=== PATIENT | male | born 1940 | race Caucasian/White ===

== ENCOUNTER 2017-06-18 15:13 | Emergency (ER) | payer OTHER ==
[~2017-06-18] VITALS: Ht 170.2 cm; Wt 76.5 kg
[2017-06-18 15:18] VITALS: Ht 170.2 cm; Wt 76.5 kg
--- NOTE | 2017-06-18 16:09 | DIAGNOSTIC IMAGING REPORT ---
CHEST ONE VIEW PORTABLE HISTORY: 76 years-old Male EVALUATE ALTERED MENTAL STATUS/WEAKNESS acute altered mental status with weakness COMPARISON: None available TECHNIQUE: Portable upright AP view of the chest FINDINGS: Cardiac silhouette is moderately enlarged. There is atherosclerosis of the aorta. Lungs are hypoinflated with bronchovascular crowding. There is mild right hemidiaphragmatic elevation with subsegmental linear bibasilar opacities. No pneumothorax or pleural effusion. No lobar airspace consolidation identified. The bones are grossly intact. IMPRESSION: 1. Cardiomegaly with hypoinflation and bronchovascular crowding. 2. Linear subsegmental bibasilar opacities suggest atelectasis. The above report was generated using voice recognition software. It may contain grammatical, syntax or spelling errors. Electronically signed by: Erasmo Centeno M.D. 06/18/2017 4:07 PM Dictated Date/Time: 06/18/2017 4:06 PM
[2017-06-18 16:31] LABS: HEMATOCRIT 26.1 % (42-52); MEAN CELL VOLUME 89.1 fL (80-100); MEAN CORPUSCULAR HGB CONC 33.7 g/dl (32-36); MEAN PLATELET VOLUME 11.2 fL (7.4-10.4); PLATELET COUNT 146 K/uL (130-400); RED BLOOD COUNT 2.93 M/uL (4.7-6.1); WHITE BLOOD COUNT 4.89 K/uL (4.8-10.8)
[2017-06-18] MEDS ORDERED: MAGN400T6 PO (16:48)
[2017-06-18] MEDS ORDERED: DICL50TA3 PO (16:48)
[2017-06-18] MEDS ORDERED: METO50TA16 PO (16:48)
[2017-06-18] MEDS ORDERED: LISI-725 PO (16:48)
[2017-06-18] MEDS ORDERED: BISA10SU3 PR (16:48)
[2017-06-18] MEDS ORDERED: METF-383 PO (16:48)
[2017-06-18] MEDS ORDERED: LISI40TA PO (16:48)
[2017-06-18] MEDS ORDERED: TRAM-10 PO (16:48)
[2017-06-18] MEDS ORDERED: DILT-203 PO (16:48)
[2017-06-18] MEDS ORDERED: [UNRECOGNIZED DRUG - CODE] PO (16:48)
[2017-06-18] MEDS ORDERED: ALPR-411 PO (16:48)
[2017-06-18] MEDS ORDERED: ASPI325T45 PO (16:48)
[2017-06-18 17:05] LABS: ALT/SGPT 33 U/L (12-78); AST/SGOT 29 U/L (15-37); BLOOD UREA NITROGEN 32 mg/dl (7-18); BUN/CREATININE RATIO 23.1 (10-20); CALCIUM 9.8 mg/dl (8.5-10.1); CARBON DIOXIDE 25 mmol/L (21-32); CHLORIDE 94 mmol/L (98-107); GLUCOSE 333 mg/dl (70-99); MAGNESIUM 2.1 mg/dl (1.8-2.4); POTASSIUM 4.7 mmol/L (3.5-5.1); SODIUM 128 mmol/L (136-145)
[2017-06-18 17:14] LABS: ALKALINE PHOSPHATASE 87 U/L (45-117); BETA-HYDROXYBUTYRATE 1.77 mg/dL (0.2-2.81)
[2017-06-18] MEDS ORDERED: MoRPHine SULFATE 4 MG/ML 1 ML CARP\\VIAL IV STA (17:25)
[2017-06-18 17:34] LABS: URIC ACID 5.6 mg/dl (2.6-7.2)
[2017-06-18] MEDS ORDERED: BOOST GLUCOSE CONTROL PO PRN (18:15)
--- NOTE | 2017-06-18 18:57 | EMERGENCY ROOM VISIT NOTE ---
History Report prepared by Cristina: Beau Junior Under the Supervision of: Dr. Ronal Worrell D.O. First contact with patient: 15:38 Chief Complaint: PAIN (GENERALIZED) Stated Complaint: CHEST PAIN, SOB History of Present Illness The patient is a 76 year old male who presents to the Emergency Room with complaints of worsening weakness that started over the past 3 weeks. Per the patient's daughter, the patient has gone downhill very fast the past few weeks, with severe pain, weakness, and constipation. The patient was noted to be very active before going downhill. He now cannot even get out of his house much. The patient's symptoms worsened over the past week, and was brought by ambulance to the [facility] ED a few days ago, and the patient's daughter was called back today and was told that the patient has acute myelogenous leukemia via flow cytometry. The patient was told to come here to be seen by oncology. The patient has had severe shoulder and back pain for "years", and was told that it was probably musculoskeletal, but the pain has worsened over the past few weeks. He takes Tramadol for the pain. The patient notes that he has had a bit of a cough recently. He was also seen at the [facility] around 10 days ago and had a CT scan done. He has a history diabetes and hypertension, and takes Lisinopril, Metoprolol, and Aspirin daily. He is a non-smoker. Source of History: patient, family Onset: 3 weeks ago Position: other (global - weakness) Symptom Intensity: cannot get out of house much Timing: worsening Associated Symptoms: + cough, + back pain (and shoulder pain worsening) Note: Associated symptoms: Constipation. Review of Systems See HPI for pertinent positives & negatives. A total of 10 systems reviewed and were otherwise negative. Past Medical & Surgical Medical Problems: (1) Arthritis (2) Diabetes (3) HTN (hypertension) Acute myeloblastic leukemia Family History Family history omitted secondary to patient's advanced age. Social History Smoking Status: Never Smoker Housing Status: lives with family Occupation Status: retired Current/Historical Medications Scheduled Aspirin (Aspirin), 325 MG PO DAILY Diltiazem Hcl Coated Beads (Diltiazem Cd), 1 CAP PO DAILY Flaxseed (Linseed) (Cold Milled Rucker Flax S), 1 TSP PO DAILY Lisinopril (Zestril), 20 MG PO QPM Lisinopril (Zestril), 40 MG PO QAM Magnesium Oxide (Mag-Ox), 400 MG PO DAILY Metformin Hcl (Glucophage), 850 MG PO AC Metoprolol Tartrate (Lopressor) (Lopressor), 50 MG PO BID Scheduled PRN Alprazolam (Xanax), 0.5 MG PO TID PRN for Anxiety Bisacodyl (Dulcolax), 1 SUPP NV for Constipation Diclofenac (Voltaren), 50 MG PO BID PRN for Pain Tramadol (Ultram), 2 TAB PO BID PRN for Pain Allergies Coded Allergies: Ezetimibe (Unverified Adverse Reaction, Severe, NAUSEA/VOMITING, 06/18/17) Gemfibrozil (Unverified Adverse Reaction, Severe, ABDOMINAL PAIN/VOMITING , 06/18/17) Paroxetine (Unverified Adverse Reaction, Severe, FATIGUE, 06/18/17) Venlafaxine (Unverified Adverse Reaction, Severe, FATIGUE, 06/18/17) Physical Exam Vital Signs Date Time Temp Pulse Resp B/P (MAP) Pulse Ox O2 Delivery O2 Flow Rate FiO2 06/18/17 20:00 78 20 168/69 94 Room Air 06/18/17 18:10 68 140/64 91 Room Air 06/18/17 16:15 68 132/50 90 Room Air 06/18/17 15:45 67 06/18/17 15:18 37.1 69 20 125/59 90 Room Air Physical Exam CONSTITUTIONAL/VITAL SIGNS: Reviewed / noted above. GENERAL: Non-toxic in appearance. INTEGUMENTARY: Warm, dry, and [place]. HEAD: Normocephalic. EYES: without scleral icterus or trauma. ENT/OROPHARYNX: clear and moist. LYMPHADENOPATHY/NECK: Is supple without lymphadenopathy or meningismus. RESPIRATORY: Lungs clear and equal. CARDIOVASCULAR: Regular rate and rhythm. GI/ABDOMEN: Soft and nontender. No organomegaly or pulsatile mass. No rebound or guarding. Normal bowel sounds. EXTREMITIES: Warm and well perfused. BACK: No CVA tenderness. NEUROLOGICAL: Intact without focal deficits. PSYCHIATRIC: normal affect. MUSCULOSKELETAL: Normally developed with good muscle tone. Medical Decision & Procedures ER Provider Diagnostic Interpretation: X ray results and stated below per my interpretation and radiology interpretation. CHEST ONE VIEW PORTABLE HISTORY: 76 years-old Male EVALUATE ALTERED MENTAL STATUS/WEAKNESS acute altered mental status with weakness COMPARISON: None available TECHNIQUE: Portable upright AP view of the chest FINDINGS: Cardiac silhouette is moderately enlarged. There is atherosclerosis of the aorta. Lungs are hypoinflated with bronchovascular crowding. There is mild right hemidiaphragmatic elevation with subsegmental linear bibasilar opacities. No pneumothorax or pleural effusion. No lobar airspace consolidation identified. The bones are grossly intact. IMPRESSION: 1. Cardiomegaly with hypoinflation and bronchovascular crowding. 2. Linear subsegmental bibasilar opacities suggest atelectasis. The above report was generated using voice recognition software. It may contain grammatical, syntax or spelling errors. Electronically signed by: Erasmo Centeno M.D. 06/18/2017 4:07 PM Laboratory Results 06/18/17 16:11 Red Blood Count 2.93, Mean Corpuscular Volume 89.1, Mean Corpuscular Hemoglobin 30.0, Mean Corpuscular Hemoglobin Concent 33.7, Mean Platelet Volume 11.2 06/18/17 16:11 Test 06/18/17 16:11 06/18/17 20:00 White Blood Count 4.89 K/uL (4.8-10.8) Red Blood Count 2.93 M/uL (4.7-6.1) Hemoglobin 8.8 g/dL (14.0-18.0) Hematocrit 26.1 % (42-52) Mean Corpuscular Volume 89.1 fL (80-100) Mean Corpuscular Hemoglobin 30.0 pg (25-34) Mean Corpuscular Hemoglobin Concent 33.7 g/dl (32-36) Platelet Count 146 K/uL (130-400) Mean Platelet Volume 11.2 fL (7.4-10.4) RDW Standard Deviation 47.1 fL (36.4-46.3) RDW Coefficient of Variation 14.3 % (11.5-14.5) Nucleated RBC Absolute Count (auto) 0.02 K/uL (0-0) Neutrophils % (Manual) 61.5 % Lymphocytes % (Manual) 21.9 % Monocytes % (Manual) 2.6 % Eosinophils % (Manual) 3.5 % Blast Cells % 10.5 % Nucleated Red Blood Cells % 0.3 % Neutrophils # (Manual) 3.01 K/uL (1.4-6.5) Total Absolute Neutrophils 3.01 K/uL (1.4-6.5) Lymphocytes # (Manual) 1.07 K/uL (1.2-3.4) Total Absolute Lymphocytes 1.07 K/uL (1.2-3.4) Monocytes # (Manual) 0.13 K/uL (0.11-0.59) Eosinophils # (Manual) 0.17 K/uL (0-0.5) Hypogranular Neutrophils 1+ Blast Cells # 0.51 K/uL (0-0) Microcytosis PRESENT Schistocytes OCCASIONAL Anion Gap 9.0 mmol/L (3-11) Est Creatinine Clear Calc Drug Dose 42.6 ml/min Estimated GFR () 56.6 Estimated GFR (Non- 48.8 BUN/Creatinine Ratio 23.1 (10-20) Uric Acid 5.6 mg/dl (2.6-7.2) Calcium Level 9.8 mg/dl (8.5-10.1) Magnesium Level 2.1 mg/dl (1.8-2.4) Total Bilirubin 0.4 mg/dl (0.2-1) Direct Bilirubin 0.2 mg/dl (0-0.2) Aspartate Amino Transf (AST/SGOT) 29 U/L (15-37) Alanine Aminotransferase (ALT/SGPT) 33 U/L (12-78) Alkaline Phosphatase 87 U/L (45-117) Lactate Dehydrogenase 1320 U/L (87-241) Total Creatine Kinase 20 U/L (39-308) Creatine Kinase MB < 0.5 ng/ml (0.5-3.6) Creatine Kinase MB Ratio (0-3.0) Troponin I < 0.015 ng/ml (0-0.045) Total Protein 6.6 gm/dl (6.4-8.2) Albumin 2.5 gm/dl (3.4-5.0) Lipase 65 U/L (73-393) Beta-Hydroxybutyric Acid 1.77 mg/dL (0.2-2.81) Thyroid Stimulating Hormone (TSH) 1.060 uIu/ml (0.300-4.500) Urine Color YELLOW Urine Appearance CLEAR (CLEAR) Urine pH 5.0 (4.5-7.5) Urine Specific Portal 1.021 (1.000-1.030) Urine Protein TRACE (NEG) Urine Glucose (UA) 2+ (NEG) Urine Ketones NEG (NEG) Urine Occult Blood NEG (NEG) Urine Nitrite NEG (NEG) Urine Bilirubin NEG (NEG) Urine Urobilinogen NEG (NEG) Urine Leukocyte Esterase NEG (NEG) Urine WBC (Auto) /hpf (0-5) Urine RBC (Auto) /hpf (0-4) Urine Hyaline Casts (Auto) /lpf (0-5) Urine Epithelial Cells (Auto) /lpf (0-5) Urine Bacteria (Auto) (NEG) Urine Pathogenic Casts /lpf (0) Laboratory results as stated above per my review. Medications Administered Medications (Trade) Dose Ordered Sig/Gilbert Route Start Time Stop Time Status Last Admin Dose Admin Morphine Sulfate (MoRPHine SULFATE INJ) 4 mg NOW STAT IV 06/18/17 17:25 06/18/17 17:26 DC 06/18/17 17:29 4 MG Ketorolac Tromethamine (Toradol Inj) 30 mg NOW STAT IV 06/18/17 20:03 06/18/17 20:04 DC 06/18/17 20:14 30 MG ECG Indication: weakness Rate (beats per minute): 65 Rhythm: normal sinus Findings: no ectopy, other (no acute injury) ED Course 1547: Previous medical records were reviewed. The patient was evaluated in room B5. A complete history and physical examination was performed. 1604: I discussed the patient with Dr. Gutierrez Loera oncology - she says that the patient needs to be transferred to a bigger hospital for inpatient treatment. 1605: I reevaluated and updated the patient. 1725: Ordered Morphine Sulfate Inj 4 mg IV. 1748: I discussed the patient with Dr. Cailin Loera oncology. 1755: I discussed the patient with Dr. Jayden Loera traffic investigator - he will evaluate the patient for further treatment. 1802: On reevaluation, the patient is resting. I discussed the results and findings with the patient and his family. They verbalized agreement of the treatment plan. The patient will be evaluated for further management and care. Medical Decision Differential includes acute coronary syndrome, myocardial infarction, CVA, TIA, anemia, infection, pneumonia, UTI, pyelonephritis, poor nutrition, dehydration, electrolyte disturbance,hypoglycemia. This is a 76-year-old male who presents to the ED with a chief complaint of generalized weakness, generalized pain, constipation and night sweats. The patient's symptoms have been ongoing for about the past 3 weeks. The patient had some outpatient blood work at [facility] that revealed findings concerning AML. The patient was sent here for further evaluation. Blood work today reveals some anemia with a hemoglobin of 8.8. White blood cell count was around 4. Platelet count was okay. LDH was elevated. Glucose is elevated. I spoke with the oncologist here about the patient. She feels the patient needs transferred to a tertiary care center for admission for treatment of AML. I spoke with the [facility] global sourcing manager/oncologist. The patient was accepted there. The patient will be transferred there once a bed is available. He was treated with IV morphine and IV Toradol here for discomfort. The patient was also fed. Has orders for prn Fentanyl while waiting bed assignment and transfer. Medication Reconcilliation Current Medication List: was personally reviewed by me Blood Pressure Screening Patient's blood pressure: Normal blood pressure Consults Time Called: 1600 Consulting Physician: Dr. Gutierrez Loera oncology Returned Call: 1604 I discussed the patient with Dr. Gutierrez Loera oncology - she says that the patient needs to be transferred to a bigger hospital for inpatient treatment. Additional Consults: Time Called: 1740 Consulted Physician: Dr. Cailin Loera oncology Returned Call: 1748 Additional Comments: I discussed the patient with Dr. Cailin Loera oncology. Time Called: 1750 Consulted Physician: Dr. Jayden Loera traffic investigator Returned Call: 1755 Additional Comments: I discussed the patient with Dr. Jayden Loera traffic investigator - he will evaluate the patient for further treatment. Impression Primary Impression: AML (acute myelogenous leukemia) Additional Impression: Anemia Scribe Attestation The scribe's documentation has been prepared under my direction and personally reviewed by me in its entirety. I confirm that the note above accurately reflects all work, treatment, procedures, and medical decision making performed by me. Departure Information Dispostion Being Evaluated By Hospitalist Referrals Cristofer Munoz MD (PCP) Patient Instructions My [facility] [address] Problem Qualifiers
[2017-06-18 19:04] LABS: COMPLETE YES; EOSINOPHIL % 3.5 %; LYMPH ABS # 1.07 K/uL (1.2-3.4); LYMPHOCYTE % 21.9 %; MICROCYTOSIS PRESENT; NEUTROPHILS % 61.5 %; SCHISTOCYTES OCCASIONAL
[2017-06-18] MEDS ORDERED: KETOROLAC TROMETHAMINE 30 MG/ML VIAL IV STA (20:03)
[2017-06-18 20:10] LABS: URINE APPEARANCE CLEAR (CLEAR); URINE BILIRUBIN NEG (NEG); URINE COLOR YELLOW; URINE NITRITE NEG (NEG); URINE SPECIFIC GRAVITY 1.021 (1.000-1.030); UROBILINOGEN NEG (NEG); ZZUR CULT IF INDIC CLEAN CATCH NO
[2017-06-18 20:16] LABS: MANUAL MICROSCOPIC REQUIRED? YES; REVIEW REQ? NO
[2017-06-18 20:26] LABS: URINE BACTERIA NEG (NEG); URINE RBC 0-4 /hpf (0-4); URINE WBC 0 /hpf (0-5)
[2017-06-18] MEDS ORDERED: FENTANYL CITRATE INJ 50 MCG/1 ML 2 ML VIAL IV PRN (20:30)
[2017-06-18 22:10] VITALS: BP 131/46; PULSE 78; TEMP 36.6; O2SAT 96
== END 2017-06-18 22:10 | disposition short-term general hospital (02) ==
LOC: C.EDB 15:15
DX: C92.00 Acute myeloblastic leukemia, not having achieved remission (principal); D64.9 Anemia, unspecified; E11.9 Type 2 diabetes mellitus without complications; I10 Essential (primary) hypertension; Z79.82 Long term (current) use of aspirin; Z79.899 Other long term (current) drug therapy; M19.90 Unspecified osteoarthritis, unspecified site